=== PATIENT | female | born 1980 | race Caucasian/White ===

== ENCOUNTER 2020-07-22 00:51 | Emergency (ER) | payer SELFPAY ==
[~2020-07-22] VITALS: Ht 170.2 cm; Wt 78.0 kg
[2020-07-22] MEDS ORDERED: ONDANSETRON HCL 4MG/2ML INJ IV STA (01:31)
[2020-07-22] MEDS ORDERED: SODIUM CHLORIDE 0.9% 1,000 ML IV ONE (01:45)
[2020-07-22] MEDS ORDERED: ONDA4TAB5 MT (03:17)
[2020-07-22 03:53] VITALS: BP 110/65
== END 2020-07-22 04:00 | disposition home or self-care (01) ==
LOC: ER 01:27
DX: F10.129 Alcohol abuse with intoxication, unspecified (principal); Y90.9 Presence of alcohol in blood, level not specified
CPT/HCPCS: 93005; 96361; 96374; 99283; J2405; J7030